=== PATIENT | male | born 1955 | race Caucasian/White ===

== ENCOUNTER → 2017-05-11 | Outpatient (CLI) | payer OTHER | END | disposition home or self-care (01) | LOC: RAD 10:09 | DX: H40.10X0 Unspecified open-angle glaucoma, stage unspecified (principal) | CPT/HCPCS: 66761 ==

== ENCOUNTER → 2017-07-13 | Outpatient (CLI) | payer OTHER ==
[2017-07-13] MEDS: PILOCARPINE 2% 15ML OPH (11:18)
[2017-07-13] MEDS: PROPARACAINE 0.5% 15 ML OPH (11:18)
== END | disposition home or self-care (01) ==
LOC: RAD 08:58
DX: H40.1110 Primary open-angle glaucoma, right eye, stage unspecified (principal)
CPT/HCPCS: 66761

== ENCOUNTER 2018-01-18 06:14 | Day surgery (SDC) | payer OTHER ==
[2018-01-18] MEDS ORDERED: FENTAnyl 50 MCG/ML VIAL (07:45)
[2018-01-18] MEDS ORDERED: MIDAZOLAM 1 MG/ML 2 ML INJ (07:45)
== END 2018-01-18 10:40 | disposition home or self-care (01) ==
LOC: GIL 06:14
DX: K29.30 Chronic superficial gastritis without bleeding (principal); B96.81 Helicobacter pylori [H. pylori] as the cause of diseases classified elsewhere; K21.9 Gastro-esophageal reflux disease without esophagitis; K44.9 Diaphragmatic hernia without obstruction or gangrene; K25.9 Gastric ulcer, unspecified as acute or chronic, without hemorrhage or perforation
CPT/HCPCS: 43239; 88305; 88312